=== PATIENT | male | born 1960 | race Caucasian/White ===

== ENCOUNTER 2016-06-15 21:36 | Observation (INO) | payer SELFPAY ==
[2016-06-15] MEDS ORDERED: NS 0.9% 1000 ML* 1,000 ML IV ONE (22:07)
[2016-06-15 22:25] LABS: Hematocrit 47 % (42-52); Hemoglobin 15.5 g/dl (14.0-18.0); Mean Corpuscular HGB Conc 33 g/dl (31-36); Mean Corpuscular Hemoglobin 32 pg (27-31); Mean Corpuscular Volume 97 fL (80-94); Mean Platelet Volume 8 um3 (7.4-10.4); Red Blood Count 4.82 10^6/ul (4.0-5.4); Red Cell Distribution Width 13 % (10.5-15); White Blood Count 9.6 10^3/ul (3.5-10.8)
--- NOTE | 2016-06-15 22:39 | RAD ---
HISTORY: Shortness of breath COMPARISONS: None VIEWS:1: Single frontal portable view of the chest at 10:22 PM FINDINGS: LINES AND TUBES: None. CARDIOMEDIASTINAL SILHOUETTE: The cardiomediastinal silhouette is normal for portable technique. PLEURA: The costophrenic angles are sharp. No pleural abnormalities are noted. LUNG PARENCHYMA: There is a diffuse reticular pattern with indistinct pulmonary vessels. ABDOMEN: The upper abdomen is clear. There is no subphrenic gas. BONES AND SOFT TISSUES: No bone or soft tissue abnormalities are noted. IMPRESSION: PULMONARY INTERSTITIAL EDEMA
[2016-06-15 22:40] LABS: ALT 32 U/L (7-52); Albumin 4.8 g/dL (3.2-5.2); Alkaline Phosphatase 53 U/L (34-104); BUN/Creatinine Ratio 17.5 (8-20); Blood Urea Nitrogen 20 mg/dL (6-24); CO2 Carbon Dioxide 21 mmol/L (22-32); Calcium 9.4 mg/dL (8.6-10.3); Chloride 95 mmol/L (101-111); Creatine Kinase 119 U/L (10-223); EGFR African American 85.8 (>60); EGFR Non-African American 66.7 (>60); Globulin 3.1 g/dL (2-4); Glucose 242 mg/dL (70-100); Sodium 134 mmol/L (133-145); Total Protein 7.9 g/dL (6.4-8.9)
[2016-06-15 22:55] LABS: Alcohol 21 mg/dL (<10)
[2016-06-16 00:16] LABS: TSH (Thyroid Stimulating Horm) 3.66 mcIU/mL (0.34-5.60)
--- NOTE | 2016-06-16 01:19 | ED ---
Charla Howell Rebecca, scribed for Devan Garcia on 06/15/16 at 2214 . Palpitations / Dysrhythmia - HPI Summary HPI Summary: Pt is a 56 y/o M BIBA who comes to ED p/w moderate palpitations characterized as fast and decreased responsiveness. Sx began suddenly at 2044 while at dinner with his family and have been constant since onset. Per son, pt and his family were having dinner, he had ingested approximately 5 drinks. He suddenly stood up and was "really panicky," showing anxiety and "started freaking out." reports he was c/o bilateral hand and foot tingling, SOB and palpitations. Sx aggravated and alleviated by nothing. Denies CP, abd pain. No PMHx anxiety, panic attacks, CAD, DM. - History of Current Complaint Chief Complaint: EDDysrhythmPalp Hx Obtained From: Patient, Family/[employer] - S/O and son Onset/Duration: Sudden Onset, Still Present Timing: Constant Severity Initially: Moderate Severity Currently: Moderate Character: Fast Aggravating: Nothing Alleviating: Nothing Associated Signs & Symptoms: Shortness of Breath - Allergy/Home Medications Allergies/Adverse Reactions: Allergies Allergy/AdvReac Type Severity Reaction Status Date / Time SEASONAL Allergy Sneezing Uncoded 06/16/16 00:52 PMH/Surg Hx/FS Hx/Imm Hx Cardiovascular History: Reports: Hx Hypertension Respiratory History: Reports: Hx Seasonal Allergies - all environmental allergies, Hx Sleep Apnea - does not use cpap GI History: Reports: Hx Gastrointestinal Bleed - currently. 3 previous episodes that resolved on their own. History: Reports: Other Problems/Disorders - possible BPH Musculoskeletal History: Reports: Other Musculoskeletal History - Previous broken ankle and now unstable. Sensory History: Reports: Hx Contacts or Glasses Opthamlomology History: Reports: Hx Contacts or Glasses - Surgical History Surgery Procedure, Year, and Place: 1976 hiatel hernia; appy Infectious Disease History: Denies: Traveled Outside the [place] in Last 30 Days - Family History Known Family History: Positive: Hypertension - "age-related" (father) - Social History Alcohol Use: Daily Alcohol Amount: A DRINK DAILY Substance Use Type: Reports: None Smoking Status (MU): Never Smoked Tobacco Review of Systems Positive: Palpitations - fast. Negative: Chest Pain Positive: Shortness Of Breath Negative: Abdominal Pain Neurological: Other - Decreased responsiveness Positive: Numbness - Bilateral hand and foot tingling Positive: Anxious All Other Systems Reviewed And Are Negative: Yes Physical Exam Triage Information Reviewed: Yes Vital Signs On Initial Exam: Initial Vitals Temp Pulse Resp BP Pulse Ox 98.1 F 126 18 214/115 99 06/15/16 21:52 06/15/16 21:52 06/15/16 21:52 06/15/16 21:52 06/15/16 21:52 Vital Signs Reviewed: Yes Skin: Positive: Warm, Skin Color Reflects Adequate Perfusion, Dry Respiratory/Lung Sounds: Positive: Clear to Auscultation, Breath Sounds Present Cardiovascular: Positive: Pulses are Symmetrical in both Upper and Lower Extremities, Tachycardia Abdomen Description: Positive: Nontender, Soft Bowel Sounds: Positive: Present Musculoskeletal: Positive: Normal, Strength/ROM Intact Neurological: Positive: Other - Lethargic Psychiatric: Positive: Anxious Diagnostics - Vital Signs Vital Signs Temp Pulse Resp BP Pulse Ox 06/15/16 21:52 98.1 F 126 18 214/115 99 - Laboratory Result Diagrams: 06/15/16 22:15 06/15/16 22:15 Lab Statement: Any lab studies that have been ordered have been reviewed, and results considered in the medical decision making process. - Radiology CXR Radiology Interpretation Completed By: Radiologist - PULMONARY INTERSTITIAL EDEMA - CT Brain CT CT Interpretation Completed By: Radiologist - No acute brain parenchymal abnormality. No hemorrhage, mass or acute territorial infarct. Chronic small vessel ischemic changes. Clear visualized paranasal sinuses. Visualized mastoid air cells clear. - EKG 2157 Cardiac Rate: Tachycardia - 121 bpm EKG Rhythm: Sinus Tachycardia ST Segment: Non-Specific - Non-Specific ST changes Course/Dx - Course Assessment/Plan: Pt came today with SOB and AMS. Labs, CXR and Brain CT were done. Shows interstitial edema on the CXR. Pt continues to be tachycardic. Will admit pt for observation of AMS with Dx of AMS, sinus tachycardia, anxiety and interstitial edema. - Diagnoses Provider Diagnoses: Altered mental status, Anxiety, Interstitial edema, Sinus tachycardia - Physician Notifications Discussed Care Of Patient With: Dr. Rosas, hospitalist, who accepts pt for observation. Time Discussed With Above Provider: 01:01 Discharge - Discharge Plan Condition: Good Disposition: ADMITTED TO [facility] Referrals: No Primary Care Phys,NOPCP [Primary Care Provider] - The documentation as recorded by the Charla ortega Rebecca accurately reflects the service I personally performed and the decisions made by , Devan Garcia.
[2016-06-16] MEDS ORDERED: Dextrose 50% Syringe 50 ML* 25 GM/50 ML SYRINGE IV PUSH PRN (02:28)
[2016-06-16 03:58] LABS: Magnesium 1.8 mg/dL (1.9-2.7)
[2016-06-16 04:05] LABS: Troponin I 0.04 ng/mL (<0.04)
[2016-06-16] MEDS: Aspirin EC Low Dose* 81 MG TAB.EC PO SCH ×2 (04:27→08:27)
[2016-06-16] MEDS ORDERED: Ondansetron INJ* 2 MG/ML VIAL IV PRN (05:02)
[2016-06-16] MEDS: Heparin VIAL(*) 5000 UNITS/ML VIAL (FIVE THOUSAND) SUBCUT SCH ×3 (05:31→21:19)
[2016-06-16] MEDS: Insulin LISPRO* 1 UNITS UNIT SUBCUT SCH ×4 (08:22→21:02)
[2016-06-16] MEDS: Hydrochlorothiazide TAB* 25 MG PO SCH (08:27)
[2016-06-16 09:31] LABS: BUN/Creatinine Ratio 23.3 (8-20); Calcium 9.6 mg/dL (8.6-10.3); EGFR African American 118.7 (>60); EGFR Non-African American 92.3 (>60); Potassium 3.7 mmol/L (3.5-5.0)
--- NOTE | 2016-06-16 09:31 | PN ---
Subjective Date of Service: 06/16/16 Interval History: Patient is epxeriencing an abnormal sensorium/emotional state, but better than last night. Objective Active Medications: Aspirin (Aspirin Ec Low Dose*) 81 mg PO DAILY [facility] Last Admin: 06/16/16 08:27 Dose: 81 mg Dextrose (D50w Syringe 50 Ml*) 12.5 gm IV PUSH .FOR FS < 60 - SS PRN PRN Reason: FS < 60 Heparin Sodium (Porcine) (Heparin Vial(*)) 5,000 units SUBCUT Q8HR [facility] Last Admin: 06/16/16 05:31 Dose: 5,000 units Hydrochlorothiazide (Hydrodiuril Tab*) 25 mg PO DAILY [facility] Last Admin: 06/16/16 08:27 Dose: 25 mg Insulin Human Lispro (Humalog*) 0 units SUBCUT ACHS [facility] PRN Reason: Protocol Last Admin: 06/16/16 08:22 Dose: Not Given Ondansetron HCl (Zofran Inj*) 4 mg IV Q6H PRN PRN Reason: NAUSEA Last Admin: 06/16/16 05:31 Dose: 4 mg Vital Signs 06/16/16 06/16/16 06/16/16 02:30 03:00 04:13 Temperature 97.2 F Pulse Rate 89 76 Respiratory 13 18 19 Rate Blood Pressure 143/94 139/78 134/72 (mmHg) O2 Sat by Pulse 94 95 Oximetry Oxygen Devices in Use Now: None Appearance: Alert, supine in bed. Somewhat anxious. Eyes: No Scleral Icterus, - - pupils about 8 mm BL Respiratory: Symmetrical Chest Expansion and Respiratory Effort, Clear to Auscultation, Clear to Percussion, Clear to Palpation, - Cardiovascular: NL Sounds; No Murmurs; No JVD, RRR, No Edema, - Extremities: No Edema, No Clubbing, Cyanosis, - Skin: No Rash or Ulcers, No Nodules or Sclerosis, - Neurological: Alert and Oriented x 3, NL Sensation Result Diagrams: 06/15/16 22:15 06/16/16 03:35 Assess/Plan/Problems-Billing Assessment: - Patient Problems (1) Drug ingestion Current Visit: Yes Status: Acute Code(s): T50.901A - POISONING BY UNSP DRUG/ MEDS/BIOL SUBST, ACCIDENTAL, INIT SNOMED Code(s): 996618504 Comment: Unknown drug(s) ingested. Urine sample sent 0906/16. Likely will be back to normal 06/17. (2) HTN (hypertension) Current Visit: Yes Status: Acute Code(s): I10 - ESSENTIAL (PRIMARY) HYPERTENSION SNOMED Code(s): 42903505 Comment: Continue atenolol, thiazide.
[2016-06-16 09:33] LABS: Urine Bilirubin Negative (Negative); Urine Glucose Negative (Negative); Urine Nitrite Negative (Negative)
--- NOTE | 2016-06-16 09:37 | RAD ---
INDICATION: Altered mental status COMPARISON: None. TECHNIQUE: Contiguous axial sections of the brain were obtained from the skull base to the vertex without contrast. FINDINGS: Evaluation is limited due to motion artifact. The ventricles, cisterns and sulci are within normal limits. There is mild periventricular and subcortical white matter hypoattenuation most consistent with microvascular disease. There are more focal areas of hypoattenuation in the white matter tracts of the right frontal lobe (image 19) and the right basal ganglia (image 16). The dash-white matter differentiation is adequately maintained and there is no sulcal effacement. No significant focal abnormality or mass effect is present. There is no evidence for intracranial hemorrhage. No significant focal osseous abnormality is present. The visualized portion of the paranasal sinuses and mastoid air cells appear clear. IMPRESSION: CT evidence of microvascular disease with more confluent areas in the right hemisphere white matter tracts. The patient is exhibiting focal neurologic deficits further characterization can be made with MRI of the brain.
[2016-06-16 09:52] LABS: Troponin I 0.05 ng/mL (<0.04)
[2016-06-16 09:52] LABS: Benzodiazepine Urine Screen None Detected (None Detect)
[2016-06-16] MEDS: Atenolol TAB* 50 MG PO SCH (10:10)
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
[2016-06-17] MEDS: Heparin VIAL(*) 5000 UNITS/ML VIAL (FIVE THOUSAND) SUBCUT SCH (05:06)
[2016-06-17 07:22] VITALS: BP 127/88
[2016-06-17] MEDS: Hydrochlorothiazide TAB* 25 MG PO SCH (08:31)
[2016-06-17] MEDS: Atenolol TAB* 50 MG PO SCH (08:31)
[2016-06-17] MEDS: Aspirin EC Low Dose* 81 MG TAB.EC PO SCH (08:32)
[2016-06-17] MEDS: Insulin LISPRO* 1 UNITS UNIT SUBCUT SCH (09:38)
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
== END 2016-06-17 10:40 | disposition home or self-care (01) ==
LOC: ED 21:36 → MEDTELE 06-16 02:15
PROVIDERS: ADMIT Internal Medicine; ATTEND Hospitalist
DX: T50.901A Poisoning by unspecified drugs, medicaments and biological substances, accidental (unintentional), initial encounter (principal); R41.82 Altered mental status, unspecified; Y92.9 Unspecified place or not applicable; E87.2 Acidosis; R06.02 Shortness of breath; I10 Essential (primary) hypertension; E66.9 Obesity, unspecified; Z68.35 Body mass index [BMI] 35.0-35.9, adult; R00.0 Tachycardia, unspecified; F41.9 Anxiety disorder, unspecified; J81.0 Acute pulmonary edema; Z79.899 Other long term (current) drug therapy
CPT/HCPCS: 36415; 70450; 71010; 80048; 80053; 80307; 80320; 80323; 80364; 81003; 82550; 82553; 83036; 83605; 83735; 83880; 84443; 84484; 85025; 85379; 85610; 85730; 93005; 96372; 96374; 99284; A9270-GY; G0378; G0480; J1644; J2405